=== PATIENT | male | born 1970 | race Caucasian/White ===

== ENCOUNTER 2022-04-23 13:56 | Inpatient (IN) | payer OTHER ==
[2022-04-23 15:35] VITALS: BMI 25.0
[2022-04-23] MEDS ORDERED: DICYCLOMINE HCL 10 MG CAPSULE PO PRN (16:02)
[2022-04-23] MEDS ORDERED: BENZOCAINE/MENTHOL (CHLORASEPTIC ) LOZENGE MM PRN (16:02)
[2022-04-23] MEDS ORDERED: NICOTINE 7 MG/24 HOURS TOPICAL PATCH TD PRN (16:02)
[2022-04-23] MEDS ORDERED: LOPERAMIDE HCL 2 MG CAPSULE PO PRN (16:02)
[2022-04-23] MEDS ORDERED: NALOXONE HCL (KLOXXADO) 8 MG SPRAY NS PRN (16:02)
[2022-04-23] MEDS ORDERED: methaDONE HCL 10 MG TABLET (FOR DETOX USE ONLY) PO ONE (16:02)
[2022-04-23] MEDS ORDERED: POLYETHYLENE GLYCOL (HEALTHYLAX) 3350 17 GM PACKET PO PRN (16:02)
[2022-04-23] MEDS ORDERED: IBUPROFEN 400 MG TABLET (FP) PO PRN (16:02)
[2022-04-23] MEDS ORDERED: NICOTINE POLACRILEX 2 MG GUM BUC PRN (16:02)
[2022-04-23] MEDS ORDERED: ONDANSETRON *ODT* 4 MG TABLET SL PRN (16:02)
[2022-04-23] MEDS ORDERED: MAG HYDROX/AL HYDROX/SIMETH 30 ML UNIT-DOSE CUP PO PRN (16:02)
[2022-04-23] MEDS ORDERED: hydrOXYzine PAMOATE 25 MG CAPSULE (FP) PO PRN (16:02)
[2022-04-23] MEDS ORDERED: NICOTINE 10 MG CARTRIDGE (INHALER) IH PRN (16:02)
[2022-04-23] MEDS ORDERED: ACETAMINOPHEN 325 MG TABLET (FP) PO PRN ×2 (16:02)
[2022-04-23] MEDS ORDERED: BISMUTH SUBSALICYLATE 524 MG/30 ML PO PRN (16:02)
[2022-04-23] MEDS ORDERED: MAGNESIUM HYDROX 2400MG/30ML ORAL SUSPENSION 30 ML CUP PO PRN (16:02)
[2022-04-23] MEDS ORDERED: IBUPROFEN 600 MG TABLET (FP) PO PRN (16:02)
[2022-04-23] MEDS: PRENATAL VITAMINS W/ FOLIC ACID TABLET (FP) PO SCH (17:37)
[2022-04-23] MEDS: cloNIDine HCL 0.1 MG TABLET PO PRN (17:37)
[2022-04-23] MEDS: THIAMINE HCL 100 MG TABLET (FP) PO SCH (22:20)
[2022-04-23] MEDS: CEPHALEXIN MONOHYDRATE 500 MG CAPSULE (UD) PO SCH (22:20)
[2022-04-23] MEDS: MELATONIN 5 MG TABLETS PO SCH (22:20)
[2022-04-24] MEDS ORDERED: LEVOTHYROXINE NA 50 MCG TABLET (FP) PO SCH (07:00)
[2022-04-24] MEDS: metFORMIN HCL 500 MG TABLET (FP) PO SCH (07:09)
[2022-04-24 10:07] LABS: HEMOGLOBIN 12.7 GM/dL (11.7-16.9); MCH 29.1 pg (25.7-33.7); MCHC 33.4 g/dl (32.0-35.9); MEAN CELL VOLUME 87.1 fl (80-96); PLATELET COUNT 118 10^3/uL (134-434); RBC 4.37 M/mm3 (4.00-5.60); RDW 12.3 % (11.9-15.9); WHITE BLOOD COUNT 4.6 K/mm3 (4.0-10.0)
[2022-04-24] MEDS: CEPHALEXIN MONOHYDRATE 500 MG CAPSULE (UD) PO SCH ×2 (10:14→22:16)
[2022-04-24] MEDS: PRENATAL VITAMINS W/ FOLIC ACID TABLET (FP) PO SCH (10:15)
[2022-04-24 10:54] LABS: CALCIUM 8.7 mg/dL (8.5-10.1)
[2022-04-24 10:55] LABS: ALBUMIN 3.5 g/dl (3.4-5.0); BLOOD UREA NITROGEN 13.4 mg/dL (7-18)
[2022-04-24 10:58] LABS: CREATININE 0.7 mg/dL (0.55-1.3)
[2022-04-24] MEDS: LEVOTHYROXINE NA 25 MCG TABLET (FP) PO SCH (10:58)
[2022-04-24 10:59] LABS: BILIRUBIN,TOTAL 0.5 mg/dL (0.2-1)
[2022-04-24] MEDS: THIAMINE HCL 100 MG TABLET (FP) PO SCH (22:16)
[2022-04-24] MEDS: MELATONIN 5 MG TABLETS PO SCH (22:16)
[2022-04-25] MEDS: cloNIDine HCL 0.1 MG TABLET PO PRN (05:48)
[2022-04-25] MEDS: LEVOTHYROXINE NA 25 MCG TABLET (FP) PO SCH (06:50)
[2022-04-25] MEDS: metFORMIN HCL 500 MG TABLET (FP) PO SCH (06:50)
[2022-04-25] MEDS ORDERED: methaDONE HCL 10 MG TABLET (FOR DETOX USE ONLY) PO ONE (10:00)
[2022-04-25] MEDS: FLUoxetine HCL 10 MG CAPSULE PO SCH (10:25)
[2022-04-25] MEDS: METHOCARBAMOL 500 MG TABLET PO PRN (10:25)
[2022-04-25] MEDS: PRENATAL VITAMINS W/ FOLIC ACID TABLET (FP) PO SCH (10:25)
[2022-04-25] MEDS: CEPHALEXIN MONOHYDRATE 500 MG CAPSULE (UD) PO SCH ×2 (10:26→22:13)
[2022-04-25] MEDS: MELATONIN 5 MG TABLETS PO SCH (22:12)
[2022-04-25] MEDS: THIAMINE HCL 100 MG TABLET (FP) PO SCH (22:13)
[2022-04-26] MEDS: LEVOTHYROXINE NA 25 MCG TABLET (FP) PO SCH (06:43)
[2022-04-26] MEDS: metFORMIN HCL 500 MG TABLET (FP) PO SCH (06:43)
[2022-04-26] MEDS: FLUoxetine HCL 10 MG CAPSULE PO SCH (10:21)
[2022-04-26] MEDS: PRENATAL VITAMINS W/ FOLIC ACID TABLET (FP) PO SCH (10:21)
[2022-04-26] MEDS: METHOCARBAMOL 500 MG TABLET PO PRN (10:22)
[2022-04-26] MEDS: CEPHALEXIN MONOHYDRATE 500 MG CAPSULE (UD) PO SCH ×2 (10:22→21:17)
[2022-04-26] MEDS: LIDOCAINE 5% TOPICAL PATCH TP SCH (14:45)
[2022-04-26] MEDS: THIAMINE HCL 100 MG TABLET (FP) PO SCH (21:17)
[2022-04-26] MEDS: MELATONIN 5 MG TABLETS PO SCH (21:17)
[2022-04-26] MEDS: LIDOCAINE PATCH REMOVAL MC SCH (21:19)
[2022-04-27] MEDS: LEVOTHYROXINE NA 25 MCG TABLET (FP) PO SCH (06:30)
[2022-04-27] MEDS: metFORMIN HCL 500 MG TABLET (FP) PO SCH (06:30)
[2022-04-27] MEDS ORDERED: methaDONE HCL 10 MG TABLET (FOR DETOX USE ONLY) PO ONE (10:00)
[2022-04-27] MEDS: PRENATAL VITAMINS W/ FOLIC ACID TABLET (FP) PO SCH (10:03)
[2022-04-27] MEDS: FLUoxetine HCL 10 MG CAPSULE PO SCH (10:04)
[2022-04-27] MEDS: LIDOCAINE 5% TOPICAL PATCH TP SCH (10:04)
[2022-04-27] MEDS: METHOCARBAMOL 500 MG TABLET PO PRN (10:04)
[2022-04-27] MEDS: CEPHALEXIN MONOHYDRATE 500 MG CAPSULE (UD) PO SCH ×2 (10:04→22:16)
[2022-04-27] MEDS: THIAMINE HCL 100 MG TABLET (FP) PO SCH (22:16)
[2022-04-27] MEDS: LIDOCAINE PATCH REMOVAL MC SCH (22:16)
[2022-04-27] MEDS: MELATONIN 5 MG TABLETS PO SCH (22:16)
[2022-04-28] MEDS ORDERED: INSULIN SLIDING SCALE (NOVOLOG) 1 VIAL SQ ONE ×2 (05:15→06:10)
[2022-04-28] MEDS: LEVOTHYROXINE NA 25 MCG TABLET (FP) PO SCH (06:21)
[2022-04-28] MEDS: metFORMIN HCL 500 MG TABLET (FP) PO SCH (06:21)
[2022-04-28 09:38] VITALS: BP 136/82; PULSE 70; RESP 16; TEMP 97.8
== END 2022-04-28 10:07 | disposition home or self-care (01) | DRG 773 ==
LOC: YASAS 13:56 → Y3N 17:21
PROVIDERS: ADMIT Allergy & Immunology; ATTEND Psychiatry & Neurology Psychiatry
PROC: HZ2ZZZZ Detoxification Services for Substance Abuse Treatment (ICD-10-PCS; principal; 2022-04-23)
DX: F11.23 Opioid dependence with withdrawal (principal); F14.20 Cocaine dependence, uncomplicated; F17.210 Nicotine dependence, cigarettes, uncomplicated; F19.24 Other psychoactive substance dependence with psychoactive substance-induced mood disorder; F32.A Depression, unspecified; D69.6 Thrombocytopenia, unspecified; G47.00 Insomnia, unspecified; L03.113 Cellulitis of right upper limb; L03.114 Cellulitis of left upper limb; E03.9 Hypothyroidism, unspecified; E11.9 Type 2 diabetes mellitus without complications; Z79.84 Long term (current) use of oral hypoglycemic drugs; R74.01 Elevation of levels of liver transaminase levels; Z86.19 Personal history of other infectious and parasitic diseases
CPT/HCPCS: 36415; 80053; 82962; 85027; 86780; 87811; 93005; 93010; C9803-CS; U0003; U0005